=== PATIENT | male | born 1960 | race Caucasian/White ===

== ENCOUNTER → 2018-08-26 05:34 | Day surgery (SDC) | payer BC ==
--- NOTE | 2018-08-14 12:25 | HP ---
AMENDED REPORT NOW INCLUDES COSIGNER DESIGNATION CC: Dr. Costa Raymond * PREOPERATIVE HISTORY AND PHYSICAL: DATE OF ADMISSION/SURGERY: 08/26/18 This patient is scheduled for same-day surgery admission by Dr. Aguirre on 08/26/18. DATE OF PREOPERATIVE HISTORY AND PHYSICAL EXAMINATION: 08/13/18 ATTENDING SURGEON: Dr. Rajendra Aguirre * (dictated by Greer Mathur NP). CHIEF COMPLAINT: Umbilical hernia. HISTORY OF PRESENT ILLNESS: The patient is a 58-year-old male with a known history of rectus diastasis and a more recent history of umbilical hernia. Initially, he noted that his "belly button felt funny". He denied any pain or nausea or vomiting or constipation or urinary symptoms. He saw Dr. Raymond, who referred him for surgical consultation. He denies any signs or symptoms to suggest incarceration or strangulation. Dr. Aguirre examined the patient and noted a prominent rectus diastasis; a reducible umbilical hernia with a 1 [address] Aguirre discussed the findings with the patient and the patient decided to proceed with open umbilical hernia repair with possible mesh as a same-day surgery procedure. Dr. Aguirre discussed the nature of the surgical procedure, the relevant risks, benefits and alternatives and today, I reviewed the expected postoperative care and recovery. The patient has had a chance to ask questions and stated that he understands the information and is satisfied with the answers given to his questions. He will sign surgical consent on the day of surgery. PAST MEDICAL HISTORY: Obesity; hypertension, well controlled; hypercholesterolemia and the patient states his lab values have been coming down to normal limits; anxiety and depression. PAST SURGICAL HISTORY: Open appendectomy, 1977; vasectomy about 27 years ago. MEDICATIONS: 1. Hydrochlorothiazide 25 mg p.o. daily. 2. Norvasc 10 mg p.o. daily. 3. Atorvastatin 10 mg p.o. daily. 4. Naproxen 500 mg 1 tablet with food b.i.d. p.r.n. ALLERGIES: BACTRIM and SULFA ANTIBIOTICS caused hives and anaphylaxis. FAMILY HISTORY: No known anesthesia complications, bleeding tendencies, or clotting disorders. 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 He quit smoking cigarettes in 2007. He chews tobacco and drinks occasional alcohol. REVIEW OF SYSTEMS: Constitutional: No fevers, chills, night sweats, excessive fatigue, or weight loss. Endocrine: No diabetes or thyroid disease. Hematologic : No easy bruising or bleeding. No history of blood transfusions. Respiratory : No dyspnea on exertion. No chronic cough. Cardiovascular: No anginal chest pain or palpitations. Gastrointestinal: No nausea, vomiting, diarrhea, GI bleeding, or constipation. No change in bowel habits. Genitourinary: No change in urinary habits. No dysuria. Musculoskeletal: No back or joint pains. Integumentary: No chronic rashes or skin changes; there is a palpable soft lipomatous type mass, right supraclavicular region, nontender. No overlying erythema. Neurologic: No headache or blurred vision. No areas of focal weakness or numbness. General: No previous anesthesia complications. No history of deep vein thrombosis or pulmonary embolism. PHYSICAL EXAMINATION GENERAL SURVEY: The patient is a 58-year-old obese male, in no acute distress, well developed. VITAL SIGNS: Height 70 inches, weight 245 pounds, body mass index 35.1. Blood pressure 136/84, pulse 76 and regular, respiratory rate 18, temperature 98.1 tympanic. HEENT: Benign. NECK: Supple. Trachea midline. In the right supraclavicular region, there is a soft, nontender mass that is likely to be consistent with a lipoma. There is no overlying erythema. No other cervical lymphadenopathy. LUNGS: Breath sounds bilaterally clear and equal. HEART: Regular rate and rhythm. No murmurs or rubs appreciated. ABDOMEN: Obese. Active bowel sounds. Soft, nondistended. Prominent rectus diastasis; reducible umbilical hernia with a 1 to 2 cm defect; well-healed surgical scar right lower quadrant. No obvious masses or organomegaly, but exam is limited by body habitus. BACK: No CVA tenderness. GENITALIA: Exam deferred. RECTAL: Exam deferred. EXTREMITIES: Warm without edema or skin ulceration. NEUROLOGIC: Alert and oriented x3. Steady gait. SKIN: Warm, dry, intact. IMPRESSION: Umbilical hernia. PLAN: Same-day surgery admission to Dr. Aguirre' service for open umbilical hernia repair with possible mesh on 08/26/18. KIMBERLY MATHUR, SHE[employer] DUCT INSTALLER [id number]/[facility] #: [id number] [facility]ITALMegan
[~2018-08-26 05:34] MED LIST: Buffered Lidocaine 1% SYRIN* 1 ML/SYRINGE INTRADERM ONE; Bupivacaine 0.5% W/EPI SDV* 30 ML VIAL ONE; Bupivacaine 0.5%* 50 ML VIAL ONE; Dexamethasone IV* 4 MG/ML 1 ML (4 MG) ONE; Famotidine IV* 10 MG/ML 2 ML (20 mg) IV ONE; Famotidine IV* 10 MG/ML 2 ML (20 mg) ONE; Ketorolac INJ* 30 MG/ML 1 ML VIAL ONE; Lactated Ringers 1000 ML Bag* 1,000 ML IV SCH; Lidocaine 1% INJ* 10 MG/ML 30 ML SDV ONE; Lidocaine 2% PF * 5 ML VIAL ONE; Midazolam* 1 MG/ML 2 ML VIAL (2 MG) ONE; Midazolam* 1 MG/ML 5 ML VIAL (5 MG) ONE; Naloxone* 0.4 MG/ML 1 ML VIAL IV PRN; Ondansetron INJ* 2 MG/ML VIAL IV PRN; Ondansetron INJ* 2 MG/ML VIAL ONE; Propofol* 10 MG/ML 20 ML BTL ONE; ceFAZolin 2 GM PREMIX in ORs 2 GM/50 ML BAG IVPB ONE; fentaNYL* 50 MCG/ML 2 ML VIAL (100 MCG VIAL) IV PRN; fentaNYL* 50 MCG/ML 2 ML VIAL (100 MCG VIAL) ONE; oxyCODONE/Acetamin 5/325 MG* TAB ONE; oxyCODONE/Acetamin 5/325 MG* TAB PO PRN
--- NOTE | 2018-08-26 08:39 | OP ---
Operative Report - Blank - Operative Report Date of Operation: 08/26/18 Note: Brief Operative Note Preop Dx: Umbilical Hernia Postop Dx: same Procedure: open repair umbilical hernia with mesh Anesthesia: local MAC Surgeon: [employer] Technical Writer: [employer] Fluids: 600 ml RL EBL: < 10 ml Specimen: none Drains: none Findings: dictated
[2018-08-26 09:40] VITALS: BP 139/87
--- NOTE | 2018-08-26 20:12 | OP ---
CC: Costa Raymond MD * DATE OF OPERATION: 08/26/18 - SDS DATE OF : 56 SURGEON: Rajendra Aguirre MD [employer]ATBED DRIVER: SINAI Agarwal ANESTHESIOLOGIST: Dr. Gonzales. ANESTHESIA: Local MAC. PRE-OP DIAGNOSIS: Umbilical hernia. POST-OP DIAGNOSIS: Umbilical hernia. OPERATIVE PROCEDURE: Open umbilical hernia repair with mesh. ESTIMATED BLOOD LOSS: Minimal. IV FLUIDS: Crystalloid. SPECIMEN: None. DRAINS: None. COMPLICATIONS: None. COUNTS: Instrument, needle, and sponge counts were correct. DESCRIPTION OF PROCEDURE: The patient was brought to the operating room and placed on the table supine. Sequential compression devices were placed on both lower extremities and intravenous sedation was administered. He was positioned , padded and prepped and draped in the usual sterile fashion and did receive appropriate intravenous antibiotics. Local anesthetic was infiltrated as a field block periumbilically. A curvilinear infraumbilical incision was created and using combination of cautery , sharp and blunt dissection, the umbilical stalk was divided off of the anterior abdominal wall and umbilical hernia sac was maintained. The circumference of the hernia defect was identified, dissecting it cleanly and this was an approximately 2.5 cm defect. Due to the patient's obesity and size of the defect, it was felt that this warranted mesh reinforcement. A Bard Ventrio circular mesh sized 2.5 inch was selected and this was prepped with saline and then the preperitoneal space was developed using combination of cautery, sharp and blunt dissection. After undermining the muscle circumferentially for an adequate distance, the mesh was positioned in the preperitoneal space and the straps were drawn up through the center of the defect. The mesh was positioned and then sutured at the cephalad and caudad aspects with interrupted 0 Ethibond sutures. The hernia itself was closed transversally with two [id number] sutures of 0 Ethibond. After completing the closure, the umbilical stalk was reapproximated to the fascia with 3-0 Vicryl. The wound was closed in two layers with 3-0 Vicryl for the deep dermis and 4-0 Monocryl for the skin in the subcuticular running fashion. The Steri-Strips and compression bandage were applied. The patient tolerated the procedure well, was awakened and transferred to Recovery in stable condition. [id number]/[facility] #: [id number] MICHAEL
== END | disposition home or self-care (01) ==
LOC: OR 05:34
PROVIDERS: ATTEND Surgery
DX: K42.9 Umbilical hernia without obstruction or gangrene (principal); I10 Essential (primary) hypertension; F41.8 Other specified anxiety disorders
CPT/HCPCS: A9270-GY; C1781; J0690; J1100; J1885; J2250; J2405; J2704; J3010